=== PATIENT | male | born 1990 | race American Indian/Alaskan Native ===

== ENCOUNTER 2016-09-26 18:33 | Emergency (ER) | payer SELFPAY ==
[2016-09-26 18:54] VITALS: BP 118/77
== END 2016-09-26 23:06 | disposition left against medical advice (07) ==
LOC: ED 18:33
DX: M54.2 Cervicalgia (principal); M54.9 Dorsalgia, unspecified; Z53.21 Procedure and treatment not carried out due to patient leaving prior to being seen by health care provider; V89.2XXA Person injured in unspecified motor-vehicle accident, traffic, initial encounter; Y93.9 Activity, unspecified; Y92.9 Unspecified place or not applicable; Y99.9 Unspecified external cause status